=== PATIENT | female | born 1975 | race Caucasian/White ===

== ENCOUNTER → 2020-06-20 10:17 | Outpatient (CLI) | payer OTHER, SELFPAY ==
--- NOTE | ~2020-06-20 | CT_ITS ---
EXAMINATION: CT abdomen pelvis w con EXAM DATE: 06/20/2020 10:55 INDICATION: Abdominal pain, diarrhea, nausea and weight loss. TECHNIQUE: Spiral CT of the abdomen and pelvis was performed following intravenous injection of 100 m L Omnipaque 350. Axial, coronal and sagittal images were reviewed. The dose-length product (DLP) fo r this examination was 1149.22 mGy-cm. The exposure was tailored according to patient size (auto mA exposure control), and iterative reconstruction (ASIR) was used as additional dose reduction techniqu e. Comparison is made to prior examination from 04/05/2019. FINDINGS: The liver, spleen, adrenal glands and pancreas are unremarkable. Gallbladder is unremarkab le. No biliary obstruction. Portal and splenic veins are patent. Kidneys enhance symmetrically. T here is no hydronephrosis. The uterus is not identified and has likely been surgically resected. P reviously seen left adnexal cystic lesion has resolved. The bladder is unremarkable. There is no ret roperitoneal or pelvic lymphadenopathy. The appendix is normal. The stomach and small bowel are unremarkable. There is expected amount of c olonic stool. No free intraperitoneal gas. The heart is normal in size. There are no pericardial or pleural effusions. The lung bases are unremarkable. There are no osteoblastic or osteolytic les ions identified. IMPRESSION: 1. Unremarkable CT abdomen pelvis exam. Reviewed, dictated and finalized at location A.
== END ==
PROVIDERS: Visit Provider Internal Medicine Gastroenterology
DX: R10.9 Unspecified abdominal pain (principal); R11.0 Nausea
CPT/HCPCS: 74177; Q9967

== ENCOUNTER → 2021-03-24 08:15 | Outpatient (CLI) | payer OTHER, SELFPAY ==
[2021-03-25 00:41] LABS: SARS-CoV-2 RNA PCR Negative
== END ==
PROVIDERS: PCP Family Medicine; Visit Provider Nurse Practitioner
DX: Z20.822 Contact with and (suspected) exposure to COVID-19 (principal)
CPT/HCPCS: C9803; U0003; U0005

== ENCOUNTER 2023-10-13 11:58 | Emergency (ER) | payer OTHER, SELFPAY ==
[2023-10-13] VITALS (13 sets, daily range): BP systolic 117–147; BP diastolic 61–88; PULSE 60–84; RESP 16–20; TEMP 36.6; O2SAT 96–100
--- NOTE | ~2023-10-13 | US_ITS ---
US abdomen limited DATE: 10/13/2023 16:03 INDICATION: Right upper quadrant abdominal pain TECHNIQUE: Real-time imaging of liver, pancreas, gallbladder COMPARISON: 10/13/2023 CT abdomen pelvis FINDINGS: No hepatic space-occupying mass lesion is evident. Normal hepatopedal portal venous flow di rection. No gallstones or gallbladder wall thickening. Negative sonographic Hernandes's sign. The common bile duct measures 4 mm, normal. No pancreatic mass lesion is evident. IMPRESSION: Negative Reviewed, dictated and finalized at Location A. Reviewed, dictated and finalized at location B. INSTRUCTOR IMPRESSION: Negative
--- NOTE | ~2023-10-13 | CT_ITS ---
EXAMINATION: CT abdomen pelvis w con DATE: 10/13/2023 13:19 INDICATION: Right upper quadrant intermittent abdominal pain for couple of weeks, nausea and diarrhea TECHNIQUE: Computed tomography (CT) of the abdomen and pelvis was performed with 100 CC Omnipaque 350 intravenous contrast. Automated exposure control and iterative reconstruction technique were employe d. Exam dose: 1629.85 mGy-cm total exam DLP. COMPARISON: 06/20/2020 CT abdomen pelvis FINDINGS: The lung bases are clear. Heart size is at upper normal range. No pericardial or pleural ef fusion. No hepatic, splenic, pancreatic, and adrenal or renal space-occupying mass lesion is detected. No ur inary tract calculus or hydroureteronephrosis. Normal caliber of the abdominal aorta. No intraperitoneal or retroperitoneal or pelvic mass lesion or adenopathy or ascites. Normal appendix. No bowel obstruction, bowel wall thickening, pneumatosis or intraperitoneal free air is detected. 2.7 cm cystic lesion in the left pelvic area is probably of ovarian origin. The uterus is surgically absent. Consider pelvic ultrasound for further evaluation. No suspicious osteolytic or osteoblastic lesions. IMPRESSION: Left ovarian 2.7 cm cystic lesion; consider pelvic ultrasound for further evaluation Status post hysterectomy Normal appendix The gallbladder appears unremarkable Reviewed, dictated and finalized at Location A. Reviewed, dictated and finalized at location B. 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
--- NOTE | ~2023-10-13 | US_ITS ---
EXAMINATION: US pelvic complete w TV DATE: 10/13/2023 16:15 INDICATION: Left lower quadrant abdominal pain TECHNIQUE: Multiple transabdominal and endovaginal sonographic images of the pelvis were obtained. COMPARISON: None. FINDINGS: The uterus is not visualized and is reportedly removed 5 years prior. The right ovary measures 2.6 x 2.3 x 1.9 cm. The left ovary measures 3.4 x 3.1 x 2.5 cm. Vascular flow with venous and arterial wave forms identified in both ovaries on color Doppler. There is no free fluid in the pelvis. IMPRESSION: 1. Status post hysterectomy. Otherwise unremarkable pelvic ultrasound. Reviewed, dictated and finalized at location A. 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
[2023-10-13 12:36] LABS: Basophils Percent Auto 0.5 % (0.2-1.2); Eosinophils Absolute Auto 0.2 K/mm3 (0-0.3); Eosinophils Percent Auto 2.4 % (0-4.4); Hematocrit 43.3 % (37.0-47.0); Hemoglobin 13.7 g/dL (12.0-15.0); Immature Granulocyte Absolute 0.04 K/mm3 (0.00-0.031); Immature Granulocyte Percent A 0.5 % (0-0.5); Lymphocytes Absolute Auto 2.22 K/mm3 (0.9-3.2); Lymphocytes Percent Auto 26.8 % (18.3-44.2); Mean Corpuscular HGB Conc 31.6 g/dl (32-36); Mean Corpuscular Hemoglobin 27.7 pg (26-34); Mean Corpuscular Volume 87.7 fl (80-100); Mean Platelet Volume 9.6 fl (7.4-10.4); Monocytes Absolute Auto 0.7 K/mm3 (0.1-0.6); Monocytes Percent Auto 8.4 % (2.6-8.5); Neutrophils Absolute Auto 5.1 K/mm3 (1.3-6.7); Neutrophils Percent Auto 61.4 % (45.5-73.1); Platelet Count Result 364 k/mm3 (150-375); Red Blood Count 4.94 M/mm3 (4.2-5.4); Red Cell Distribution Width 13.2 % (11.5-14.5); White Blood Count 8.3 K/mm3 (4.5-10.0)
[2023-10-13 12:41] LABS: Appearance Urine Clear (Clear); Bacteria Urine None Seen /hpf; Bilirubin Urine Negative (Negative); Blood Urine Negative (Negative); Color Urine Yellow (Yellow); Glucose Urine UA Negative (Negative); Ketones Urine Negative (Negative); Leukocyte Esterase Ur Trace LEU/UL (Negative); Nitrate Urine Negative (Negative); Non Pathogenic Casts 0-2; Protein Urine Negative (Negative); RBC Urine 0-2 /hpf (0-2); Specific Grav Ur 1.019 (1.001-1.035); Squamous Epithelial Cell Urine Occasional /hpf (Few); Urobilinogen Urine 0.2 mg/dL (<2.0); WBC Urine 0-5 /hpf; pH Urine 5.5 (5.0-9.0)
[2023-10-13 12:44] LABS: Alanine Aminotransferase 45 U/L (6-35); Albumin Level 4.2 g/dL (3.5-5.1); Alkaline Phosphatase 92 U/L (38-126); Anion Gap 9 mmol/L (8-16); Aspartate Amino Transferase 34 U/L (14-36); Bilirubin,Total 0.8 mg/dL (0.2-1.3); Blood Urea Nitrogen 8 mg/dL (7-17); Calcium 8.9 mg/dL (8.4-10.2); Carbon Dioxide 26 mmol/L (22-30); Chloride 105 mmol/L (98-107); Estimated CRCL calculation 116 ml/min; Estimated Glomerular Filt Rate > 60; Glucose 99 mg/dL (65-110); Lipase 59 U/L (23-300); Potassium 3.9 mmol/L (3.4-5.0); Sodium 140 mmol/L (137-145)
[2023-10-13 12:47] LABS: Add Urine Microscopic? YES
--- NOTE | 2023-10-13 13:01 | ED.ABDPAIN ---
HPI - Abdominal Pain General Chief Complaint: Abdominal Pain Stated Complaint: upper abdominal pain right side Time Seen by Provider: 10/13/23 12:41 History of Present Illness HPI narrative: 47-year-old female present to the emergency department for evaluation of intermittent right upper quadrant pain. Patient states that symptoms have been ongoing for the last 2 weeks. 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 Patient states she has had gallbladder issues previously but nothing has been diagnosed. Patient did have follow-up with surgery and referred to the emergency department for imaging. Patient does describe intermittent right upper quadrant and left lower quadrant pain. Patient declined any medication for pain control but states she does have intermittent nausea. Related Data Home Medications Medication Instructions Recorded Confirmed meloxicam 7.5 mg tablet 7.5 mg PO DAILY PRN 06/20/21 04/02/22 Allergies Allergy/AdvReac Type Severity Reaction Status Date / Time amoxicillin [From Augmentin] Allergy Intermediate rash Verified 10/13/23 11:14 clavulanic acid Allergy Intermediate rash Verified 10/13/23 11:14 [From Augmentin] macadamia nut oil Allergy Unknown Swelling Verified 10/13/23 11:14 Sulfa (Sulfonamide Allergy Unknown Urticaria Verified 10/13/23 11:14 Antibiotics) cobalt Allergy Unknown Verified 10/13/23 11:14 tree and shrub pollen Allergy Unknown Verified 10/13/23 11:14 Kiwi Allergy Unknown Nausea Uncoded 10/13/23 11:14 Review of Systems Review of Systems: All systems reviewed & are unremarkable except as noted in HPI and below PMFSH Past Medical History Medical History Anxiety Arthritis Bilateral hand pain GERD (gastroesophageal reflux disease) Irritable bowel disease Migraine Psoriatic arthritis Surgical History Surgical History Delivery by section H/O: hysterectomy Family History Family History Mother Cardiac arrest Grandparent Heart disease Diabetes mellitus Sibling Psoriasis Dementia Social History Social History Smoking status: Never smoker Alcohol intake: never Substance use: never Living arrangements: with family 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 HEAD: normocephalic, atraumatic. EYES: PERRLA/EOMI, conjunctivae clear. NOSE: Normal no drainage NECK: Supple. No adenopathy, no masses. RESPIRATORY: Airway patent, respirations nonlabored. Clear to auscultation bilaterally, no rales, rhonchi, wheezing. CARDIOVASCULAR: Regular rate and rhythm without murmurs rubs or gallops. ABDOMINAL: Left lower quadrant and reported tenderness to palpation MUSCULOSKELETAL: Moves all extremities. Strength/ROM intact, No edema, No calf tenderness. NEURO: Alert. Cranial nerves II through XII intact. Good gait. Good coordination SKIN: Warm, dry. Normal Color Course Course Emergency Course: 47-year-old female present to the emergency department for evaluation of right upper quadrant pain. CT showed unremarkable gallbladder but did show concern for left-sided ovarian lesion. Ultrasound of pelvis showed no ovarian torsion. Ultrasound of gallbladder showed no cholecystitis. Patient did feel improved with treatment. Patient was updated on results of her work-up. Patient was encouraged to have close follow-up with MEDICAL HISTORIAN and with surgery. Patient was also encouraged to follow a low-fat diet. All questions concerns were addressed. Vital Signs Vital signs: Vital Si
[2023-10-13] MEDS: ONDANSETRON INJ 4 MG/2 ML VIAL IV PUSH (13:19)
[2023-10-13] MEDS: SODIUM CHLORIDE 0.9% IV 1,000 ML 999 ML IV CONT (13:19)
[2023-10-13 14:17] LABS: Lipase 49 U/L (23-300)
[2023-10-13 14:18] LABS: Lactic Acid Reflex 0.9 mmol/L (0.7-2.0)
== END 2023-10-13 16:44 | disposition home or self-care (01) ==
PROVIDERS: Emergency Provider Emergency Medicine; PCP Nurse Practitioner Family
DX: R10.11 Right upper quadrant pain (principal); M19.90 Unspecified osteoarthritis, unspecified site; K21.9 Gastro-esophageal reflux disease without esophagitis; K58.9 Irritable bowel syndrome, unspecified; L40.50 Arthropathic psoriasis, unspecified; Z90.710 Acquired absence of both cervix and uterus; N83.202 Unspecified ovarian cyst, left side
CPT/HCPCS: 36415; 74177; 76705; 76830; 76856; 80053; 81001; 83605; 83690; 85025; 96361; 96374; 99284; J2405; J7030; Q9967

== ENCOUNTER → 2023-11-04 16:01 | Outpatient (CLI) | payer OTHER, SELFPAY ==
--- NOTE | ~2023-11-04 | US_ITS ---
EXAMINATION: US pelvic complete DATE: 11/04/2023 16:21 INDICATION: Left lower quadrant pain Comparison:10/13/2023 TECHNIQUE: Multiple transabdominal and endovaginal sonographic images of the pelvis performed. FINDINGS: The uterus is surgically absent. The right ovary measures 1.5 x 2.2 x 2.6 cm and the left ovary measures 3.9 x 2.5 x 3.1 cm. There ar e small follicles in each ovary. Normal doppler signal in both ovaries. There is no free fluid in the pelvis. There are no abnormal masses seen on either side. IMPRESSION: 1. Unremarkable pelvic ultrasound. Reviewed, dictated and finalized at location L. CH DEVELOPER
== END ==
PROVIDERS: PCP Nurse Practitioner Family; Visit Provider Obstetrics & Gynecology Gynecology
DX: N83.209 Unspecified ovarian cyst, unspecified side (principal)
CPT/HCPCS: 76856

== ENCOUNTER 2023-11-27 10:00 | Emergency (ER) | payer OTHER, SELFPAY ==
[2023-11-27] VITALS (8 sets, daily range): BP systolic 126–133; BP diastolic 71–81; PULSE 87; RESP 16; TEMP 36.4; O2SAT 90–100
--- NOTE | ~2023-11-27 | CT_ITS ---
EXAMINATION: CT abdomen pelvis w con DATE: 11/27/2023 12:55 INDICATION: Abdominal pain. TECHNIQUE: Computed tomography (CT) of the abdomen and pelvis was performed with 100 mL Omnipaque 350 intravenous contrast. Automated exposure control and iterative reconstruction technique were employe d. The dose-length product was 1403.50 mGy-cm. COMPARISON: CT abdomen and pelvis 10/13/2023, ultrasound 11/04/2023 FINDINGS: The visualized portions of the lung bases demonstrate mild atelectasis. No pleural effusion . The heart size is normal. No pericardial effusion. The liver, gallbladder, spleen, pancreas, adrena l glands, and kidneys are normal. There are no dilated loops of bowel. The appendix is normal. There are cysts in the ovaries measuring up to 3.0 cm on the left. There are no pathologically enlarged lym ph nodes. There is no free intraperitoneal fluid. There is mild thoracic and lumbar spondylosis. IMPRESSION: 1. Cysts in the ovaries measuring up to 3.0 cm on the left, likely follicular cysts. Reviewed, dictated and finalized at location A. ENTER AND JOINER IMPRESSION: 1. Cysts in the ovaries measuring up to 3.0 cm on the left, likely follicular c ysts.
--- NOTE | ~2023-11-27 | US_ITS ---
EXAMINATION: US pelvic complete w TV DATE: 11/27/2023 14:38 INDICATION: Low abdominal pain. Ovarian cyst. TECHNIQUE: Multiple transabdominal and transvaginal sonographic images of the pelvis were obtained. COMPARISON: CT abdomen and pelvis 11/27/2023 FINDINGS: TRANSABDOMINAL ULTRASOUND: The uterus is absent. There is no free fluid in the pelvis. The right ovary measures 4.0 x 3.7 x 3.9 cm. TRANSVAGINAL ULTRASOUND: The left ovary measures 3.7 x 6.7 x 6.7 cm. There is a 3.6 cm cyst in left ovary. There is normal vas cular flow in the ovaries. IMPRESSION: 1. 3.6 cm cyst in left ovary, likely a follicular cyst. Reviewed, dictated and finalized at location A. MOUNTER
[2023-11-27 11:28] LABS: Basophils Absolute Auto 0.1 K/mm3 (0.0-0.1); Basophils Percent Auto 0.5 % (0.2-1.2); Eosinophils Absolute Auto 0.2 K/mm3 (0-0.3); Eosinophils Percent Auto 2.4 % (0-4.4); Hematocrit 44.3 % (37.0-47.0); Hemoglobin 14.2 g/dL (12.0-15.0); Lymphocytes Absolute Auto 2.62 K/mm3 (0.9-3.2); Lymphocytes Percent Auto 25.9 % (18.3-44.2); Mean Corpuscular HGB Conc 32.1 g/dl (32-36); Mean Corpuscular Hemoglobin 28.2 pg (26-34); Mean Corpuscular Volume 88.1 fl (80-100); Mean Platelet Volume 9.2 fl (7.4-10.4); Monocytes Percent Auto 9.4 % (2.6-8.5); Neutrophils Absolute Auto 6.2 K/mm3 (1.3-6.7); Neutrophils Percent Auto 60.8 % (45.5-73.1); Platelet Count Result 419 k/mm3 (150-375); Red Blood Count 5.03 M/mm3 (4.2-5.4); Red Cell Distribution Width 13.3 % (11.5-14.5); White Blood Count 10.1 K/mm3 (4.5-10.0)
[2023-11-27 11:39] LABS: Appearance Urine Cloudy (Clear); Bacteria Urine 2+ /hpf; Bilirubin Urine Negative (Negative); Blood Urine Negative (Negative); Color Urine Yellow (Yellow); Glucose Urine UA Negative (Negative); Ketones Urine Trace mg/dL (Negative); Leukocyte Esterase Ur Negative LEU/UL (Negative); Need Manual Microscopic Reviewed; Nitrate Urine Negative (Negative); Protein Urine Negative (Negative); RBC Urine 0-2 /hpf (0-2); Specific Grav Ur 1.023 (1.001-1.035); Squamous Epithelial Cell Urine Few /hpf (Few); Urobilinogen Urine 0.2 mg/dL (<2.0); pH Urine 5.5 (5.0-9.0)
[2023-11-27 11:42] LABS: Add Urine Microscopic? YES
[2023-11-27 11:45] LABS: Alanine Aminotransferase 28 U/L (6-35); Albumin Level 4.4 g/dL (3.5-5.1); Alkaline Phosphatase 87 U/L (38-126); Anion Gap 10 mmol/L (8-16); Aspartate Amino Transferase 29 U/L (14-36); Bilirubin,Total 1.2 mg/dL (0.2-1.3); Blood Urea Nitrogen 8 mg/dL (7-17); Calcium 9.4 mg/dL (8.4-10.2); Carbon Dioxide 24 mmol/L (22-30); Chloride 103 mmol/L (98-107); Estimated CRCL calculation 128 ml/min; Estimated Glomerular Filt Rate > 60; Glucose 107 mg/dL (65-110); Lipase 49 U/L (23-300); Potassium 4.3 mmol/L (3.4-5.0); Sodium 137 mmol/L (137-145)
--- NOTE | 2023-11-27 12:22 | ED.ABDPAIN ---
HPI - Abdominal Pain General Chief Complaint: Abdominal Pain Stated Complaint: lower abd pain Time Seen by Provider: 11/27/23 11:50 Source: patient Mode of arrival: ambulatory Limitations: no limitations History of Present Illness HPI narrative: This is a 48 year old female that presents to the ER for abdominal pain ongoing over the last couple of days. Associated with diarrhea and nausea. Denies fever, dysuria, hematuria or vomiting. Related Data Home Medications Medication Instructions Recorded Confirmed meloxicam 7.5 mg tablet 7.5 mg PO DAILY PRN 06/20/21 10/14/23 Allergies Allergy/AdvReac Type Severity Reaction Status Date / Time amoxicillin [From Augmentin] Allergy Intermediate rash Verified 11/27/23 10:49 clavulanic acid Allergy Intermediate rash Verified 11/27/23 10:49 [From Augmentin] macadamia nut oil Allergy Unknown Swelling Verified 11/27/23 10:49 Sulfa (Sulfonamide Allergy Unknown Urticaria Verified 11/27/23 10:49 Antibiotics) cobalt Allergy Unknown Verified 11/27/23 10:49 tree and shrub pollen Allergy Unknown Verified 11/27/23 10:49 Kiwi Allergy Unknown Nausea Uncoded 10/13/23 11:14 Review of Systems Review of Systems: CONSTITUTIONAL: Denies fever GASTROINTESTINAL: Reports abdominal pain, nausea, and diarrhea. Denies vomiting GENITOURINARY: Reports dysuria. Denies hematuria. 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 HEAD: Normocephalic, atraumatic. EYES: EOMI. CHEST: Clear to auscultation. No respiratory distress. No wheezes rales or rhonchi HEART: Regular rate and rhythm. No murmur heard. Normal peripheral pulses. ABDOMEN: Soft, nondistended, normal active bowel sounds. Tender to palpation throughout the abdomen, without guarding. No CVA tenderness EXTREMITIES: Normal range of motion. No edema. SKIN: Warm, dry, no rash. NEURO: No focal deficits. Alert and oriented x3. PSYCH: Normal mood and affect Course Course Emergency Course: Patient updated on workup and agrees with plan of care Vital Signs Vital signs: Vital Signs Temperature 97.6 F 11/27/23 10:45 Pulse Rate 87 11/27/23 10:45 Respiratory Rate 16 11/27/23 10:45 Blood Pressure 133/81 11/27/23 10:45 Pulse Oximetry 100 11/27/23 10:45 Temperature 97.6 F 11/27/23 10:45 Pulse Rate 87 11/27/23 10:45 Respiratory Rate 16 11/27/23 10:45 Blood Pressure 133/80 11/27/23 12:16 Pulse Oximetry 90 11/27/23 13:30 MDM - Abdominal Pain MDM Narrative Medical decision making narrative: patient presents to the emergency department for abdominal pain, nausea, diarrhea, and some dysuria. Ongoing over the last couple of days. Patient is afebrile and nontoxic appearing. Her vitals are stable. CBC without concerning leukocytosis. Metabolic panel without concerning findings. Urine with possible evidence of infection. This will be
[2023-11-27] MEDS: SODIUM CHLORIDE 0.9% IV 500 ML 999 ML IV CONT (13:02)
== END 2023-11-27 15:43 | disposition home or self-care (01) ==
PROVIDERS: Emergency Medicine; Emergency Provider Physician Assistant; PCP Nurse Practitioner Family
DX: N83.202 Unspecified ovarian cyst, left side (principal); R82.71 Bacteriuria; R10.84 Generalized abdominal pain; K21.9 Gastro-esophageal reflux disease without esophagitis; K58.9 Irritable bowel syndrome, unspecified; L40.50 Arthropathic psoriasis, unspecified; M19.90 Unspecified osteoarthritis, unspecified site; Z90.710 Acquired absence of both cervix and uterus
CPT/HCPCS: 36415; 74177; 76830; 76856; 80053; 81001; 81025; 83690; 85025; 87086; 96360; 99284; J7040; Q9967

== ENCOUNTER 2024-02-24 00:24 | Day surgery (SDC) | payer OTHER, SELFPAY ==
[2024-02-16 15:47] VITALS: BMI 39.2
--- NOTE | 2024-02-20 09:15 | SUR.PREOP ---
Patient called regarding upcoming procedure. Voicemail left regarding appointment times.
[2024-02-24 06:26] VITALS: BP 116/73; PULSE 73; RESP 16; TEMP 36.3; O2SAT 96
[2024-02-24] MEDS: LACTATED RINGERS 1,000 ML 150 ML IV CONT (06:35)
--- NOTE | 2024-02-24 07:20 | WPDANESEPPF ---
Anes - Initial Pre Proc Eval Procedure: Operation Date: 02/24/24 07:30 Proposed Procedures p Esophagogastroduodenoscopy & Colonoscopy - Tawanda Brown MD Date/Time: 02/24/24 07:20 Surgeon: Tawanda Brown MD Pre Op Diagnosis: Neoplasm screening,GERD Patient Data Age: 48 Gender: F Height: 1.7 m Weight: 114.9 kg Last Vital Signs Temp 97.4 F L 02/24/24 06:26 Pulse 73 02/24/24 06:26 Resp 16 02/24/24 06:26 BP 116/73 02/24/24 06:26 Pulse Ox 96 02/24/24 06:26 O2 Del Method Room Air 02/24/24 06:26 Allergies Allergy/AdvReac Type Severity Reaction Status Date / Time amoxicillin [From Augmentin] Allergy Intermediate rash Verified 02/24/24 06:23 clavulanic acid Allergy Intermediate rash Verified 02/24/24 06:23 [From Augmentin] macadamia nut oil Allergy Unknown Swelling Verified 02/24/24 06:23 Sulfa (Sulfonamide Allergy Unknown Urticaria Verified 02/24/24 06:23 Antibiotics) cobalt Allergy Unknown Verified 02/24/24 06:23 tree and shrub pollen Allergy Unknown Verified 02/24/24 06:23 Kiwi Allergy Unknown Nausea Uncoded 02/24/24 06:23 Home Medications Medication Instructions Recorded Confirmed Type ergocalciferol (vitamin D2) 1,250 1,250 mcg PO WEEKLY #7 caps 04/02/22 02/24/24 Rx mcg (50,000 unit) capsule fluoxetine 10 mg capsule 20 mg PO DAILY 02/16/24 02/24/24 History Patient hx anesthesia problems: none Family hx anesthesia problems: none Results Review: All pre-operative results and documents have been reviewed as part of the pre-operative evaluation. [facility] Past Medical History Medical History Anxiety Arthritis Bilateral hand pain GERD (gastroesophageal reflux disease) Irritable bowel disease Migraine Psoriatic arthritis Surgical History Surgical History Delivery by section H/O: hysterectomy Family History Family History Mother Cardiac arrest Grandparent Heart disease Diabetes mellitus Sibling Psoriasis Dementia Social History Social History (System 12/02/23 @ 10:36 by Jailene Mann) Smoking status: Never smoker Alcohol intake: never Substance use: never Substance use type: does not use Living arrangements: with family 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 Gender identity (if verbalized by the patient): Female Spiritual care concerns: No Agree to blood products: Yes Anes - Eval Final PreProcedure Day of Procedure 02/24/24 07:20 Patient weight: morbidly obese Heart: regular rate and rhythm Lungs: clear to auscultation Airway: Mallampati scale class II Neurological: alert and oriented Last oral intake: >/= 8 hours ASA classification: III Emergent: no Anesthetic plan: proceed Anesthesia type and monitoring: general GIVS and standard monitoring Results Review: All pre-operative results and documents have been reviewed as part of the pre-operative evaluation. Informed Consent: The patient's anesthetic plan and its attendant risks and benefits were discussed with the patient/family/POA. Questions were solicited and answers provided to the satisfaction of the patient/family/POA.
--- NOTE | 2024-02-24 07:28 | PM.HPGS ---
History of Present Illness History of Present Illness Consent: Risks, benefits, and alternatives have been discussed and questions answered. Patient agrees to proceed with procedure. Chief complaint: Neoplasm screening,GERD Narrative: Suze Vázquez is a 48 year old female with gerd for years, only using omeprazole as needed, last colonoscopy 2017 Review of Systems Review of Systems: All systems reviewed & are unremarkable except as noted in HPI and below PMFSH Past Medical History Medical History (Updated 02/24/24 @ 07:29 by Tawanda Brown MD) Anxiety Arthritis Bilateral hand pain Colon cancer screening GERD (gastroesophageal reflux disease) Irritable bowel disease Migraine Psoriatic arthritis Surgical History Surgical History (System 12/02/23 @ 10:36 by Jailene Mann) Delivery by section H/O: hysterectomy Family History Family History Mother Cardiac arrest Grandparent Heart disease Diabetes mellitus Sibling Psoriasis Dementia Social History Social History (System 12/02/23 @ 10:36 by Jailene Mann) Smoking status: Never smoker Alcohol intake: never Substance use: never Substance use type: does not use Living arrangements: with family 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 Gender identity (if verbalized by the patient): Female Spiritual care concerns: No Agree to blood products: Yes Meds Home Medications and Allergies Home Medications Medication Instructions Recorded Confirmed Type ergocalciferol (vitamin D2) 1,250 1,250 mcg PO WEEKLY #7 caps 04/02/22 02/24/24 Rx mcg (50,000 unit) capsule fluoxetine 10 mg capsule 20 mg PO DAILY 02/16/24 02/24/24 History Allergies Allergy/AdvReac Type Severity Reaction Status Date / Time amoxicillin [From Augmentin] Allergy Intermediate rash Verified 02/24/24 06:23 clavulanic acid Allergy Intermediate rash Verified 02/24/24 06:23 [From Augmentin] macadamia nut oil Allergy Unknown Swelling Verified 02/24/24 06:23 Sulfa (Sulfonamide Allergy Unknown Urticaria Verified 02/24/24 06:23 Antibiotics) cobalt Allergy Unknown Verified 02/24/24 06:23 tree and shrub pollen Allergy Unknown Verified 02/24/24 06:23 Kiwi Allergy Unknown Nausea Uncoded 02/24/24 06:23 Vital Signs Vital Signs - 24 hr 02/24/24 06:26 Temperature 97.4 F L Pulse Rate 73 Respiratory Rate 16 Blood Pressure 116/73 Pulse Oximetry 96 Oxygen Delivery Room Air Exam Const: General: comfortable and no acute distress HENMT: Face/Nose/Sinus: Normal nares present Eyes: General: appearance normal, both eyes and all related structures Neck: Neck: no JVD Resp: Auscultation: clear to auscultation bilaterally Cardio: Rate: regular rate Rhythm: regular rhythm GI: Inspection: non-distended GI Palp: Yes Soft to palpation Skin: General skin exam: normal color Neuro: General: gait normal Speech: normal speech Extrem: General: normal to inspection Psych: Mental Status: mental status grossly normal Assessment and Plan Assessment and plan (1) GERD (gastroesophageal reflux disease): Code(s): K21.9 - Gastro-esophageal reflux disease without esophagitis Status: Acute Assessment and Plan: egd with bx (2) Colon cancer screening: Code(s): Z12.11 - Encounter for screening for malignant neoplasm of colon Status: Acute Assessment and Plan: colonoscopy
[2024-02-24 07:54] VITALS: BP 111/62; PULSE 68; RESP 26; O2SAT 95
[2024-02-24 08:04] VITALS: BP 108/71; PULSE 70; RESP 20; O2SAT 97
--- NOTE | 2024-02-24 08:09 | SUR.OPER ---
EGD: start 07:37, end 07:41 Colonoscopy: start 07:45, end 07:53
[2024-02-24 08:14] VITALS: BP 127/81; PULSE 60; RESP 18; O2SAT 97
== END 2024-02-24 08:31 | disposition home or self-care (01) ==
PROVIDERS: PCP Internal Medicine; Visit Provider Internal Medicine Gastroenterology
PROC: 0DJ08ZZ Inspection of Upper Intestinal Tract, Via Natural or Artificial Opening Endoscopic (ICD-10-PCS; CPT 43235; principal; 2024-02-24 07:30)
DX: Z12.11 Encounter for screening for malignant neoplasm of colon (principal); K64.8 Other hemorrhoids; K29.80 Duodenitis without bleeding; K29.50 Unspecified chronic gastritis without bleeding; K21.9 Gastro-esophageal reflux disease without esophagitis; F41.9 Anxiety disorder, unspecified; E66.01 Morbid (severe) obesity due to excess calories; Z68.39 Body mass index [BMI] 39.0-39.9, adult
CPT/HCPCS: 45378; 43239; 88305; J2704; J7120

== ENCOUNTER 2024-09-03 15:56 | Outpatient (CLI) | payer OTHER, SELFPAY ==
--- NOTE | ~2024-09-03 | US_ITS ---
EXAMINATION: US transvaginal DATE: 09/03/2024 16:22 INDICATION: Pelvic pain. TECHNIQUE: Multiple transvaginal sonographic images of the pelvis were obtained. COMPARISON: Ultrasound 11/27/2023 FINDINGS: The uterus is absent. The right ovary measures 2.4 x 2.3 x 2.4 cm. There is normal vascular flow in r ight ovary. Left ovary is not visualized. There is no ascites. IMPRESSION: 1. Normal right ovary. Left ovary not visualized. 2. Hysterectomy. Reviewed, dictated and finalized at location A.
== END 2024-09-03 15:57 | disposition home or self-care (01) ==
LOC: MICIMG 15:57
PROVIDERS: PCP Nurse Practitioner; Visit Provider Nurse Practitioner
DX: R10.2 Pelvic and perineal pain (principal); Z90.710 Acquired absence of both cervix and uterus
CPT/HCPCS: 76830

== ENCOUNTER 2025-05-20 10:34 | Outpatient (CLI) | payer OTHER, SELFPAY ==
[2025-05-20 18:34] LABS: Basophils Percent Auto 0.7 % (0.2-1.2); Eosinophils Absolute Auto 0.2 K/mm3 (0-0.3); Eosinophils Percent Auto 3.1 % (0-4.4); Hematocrit 43.3 % (37.0-47.0); Hemoglobin 14.2 g/dL (12.0-15.0); Immature Granulocyte Absolute 0.02 K/mm3 (0.00-0.031); Immature Granulocyte Percent A 0.3 % (0-0.5); Lymphocytes Absolute Auto 1.72 K/mm3 (0.9-3.2); Lymphocytes Percent Auto 28.2 % (18.3-44.2); Mean Corpuscular HGB Conc 32.8 g/dl (32-36); Mean Corpuscular Hemoglobin 28.2 pg (26-34); Mean Corpuscular Volume 85.9 fl (80-100); Monocytes Absolute Auto 0.5 K/mm3 (0.1-0.6); Monocytes Percent Auto 7.4 % (2.6-8.5); Neutrophils Absolute Auto 3.7 K/mm3 (1.3-6.7); Neutrophils Percent Auto 60.3 % (45.5-73.1); Platelet Count Result 398 k/mm3 (150-375); Red Blood Count 5.04 M/mm3 (4.2-5.4); Red Cell Distribution Width 13.2 % (11.5-14.5); White Blood Count 6.1 K/mm3 (4.5-10.0)
[2025-05-20 18:44] LABS: Hemoglobin A1C. 5.9 % (<5.7)
[2025-05-20 18:47] LABS: Alanine Aminotransferase 26 U/L (6-35); Albumin Level 4.1 g/dL (3.5-5.1); Alkaline Phosphatase 96 U/L (38-126); Anion Gap 11 mmol/L (4-12); Aspartate Amino Transferase 35 U/L (14-36); Bilirubin,Total 1.3 mg/dL (0.2-1.3); Blood Urea Nitrogen 11 mg/dL (7-17); Carbon Dioxide 22 mmol/L (22-30); Chloride 103 mmol/L (98-107); Cholesterol 246 mg/dL (0-200); Estimated Glomerular Filt Rate > 60; Glucose 103 mg/dL (65-110); HDL Direct 36 mg/dL; Potassium 4.1 mmol/L (3.4-5.0); Sodium 136 mmol/L (137-145); Total Protein 7.3 g/dL (6.3-8.2); Triglycerides 181 mg/dL (<150)
[2025-05-20 18:57] LABS: LDL Cholesterol Direct 163 mg/dL
[2025-05-20 19:01] LABS: Vitamin D 25 Hydroxy 21.3 ng/mL
[2025-05-20 19:36] LABS: Hepatitis C Virus Antibody Negative (Negative)
== END 2025-05-20 10:35 | disposition home or self-care (01) ==
LOC: ANHGOSHLAB 10:36
PROVIDERS: PCP Family Medicine; Visit Provider Family Medicine
DX: L40.50 Arthropathic psoriasis, unspecified (principal); Z11.59 Encounter for screening for other viral diseases; R73.03 Prediabetes; E66.9 Obesity, unspecified; R53.83 Other fatigue; E55.9 Vitamin D deficiency, unspecified
CPT/HCPCS: 36415; 80053; 80061; 82306; 82607; 83036; 84443; 85025; 86803